=== PATIENT | female | born 1980 | race Caucasian/White ===

== ENCOUNTER 2022-01-12 07:18 | Emergency (ER) | payer OTHER ==
[2022-01-12 07:29] VITALS: BMI 58.3
[2022-01-12 09:49] VITALS: BP 116/72; PULSE 86; TEMP 99.5
== END 2022-01-12 10:08 | disposition home or self-care (01) ==
LOC: JER 07:18
DX: O98.512 Other viral diseases complicating pregnancy, second trimester (principal); J09.X2 Influenza due to identified novel influenza A virus with other respiratory manifestations; Z3A.26 26 weeks gestation of pregnancy
CPT/HCPCS: 0241U-QW; 99283-25